=== PATIENT | male | born 1980 | race African-American/Black ===

== ENCOUNTER 2018-02-16 12:59 | Emergency (ER) | payer SELFPAY ==
[~2018-02-16] VITALS: Ht 166.4 cm; Wt 72.6 kg
[2018-02-16 13:10] VITALS: BP 125/81
[2018-02-16] MEDS ORDERED: PRED50TA PO (14:58)
[2018-02-16] MEDS ORDERED: PROAIR HFA8.5 GM INH (14:58)
[2018-02-16] MEDS ORDERED: AZIT250T PO (14:58)
--- NOTE | 2018-02-16 14:59 | PHYS DOC ---
Past Medical History Past Medical History: No Pertinent History Past Surgical History: Other Additional Past Surgical Histo: HERNIA REPAIR Additional Information: 4 CIGARETTES DAILY Alcohol Use: None Drug Use: None Adult General Chief Complaint Chief Complaint: SORE THROAT HPI HPI Patient is a 37 year old male who presents with chest congestion, sinus congestion, shortness of breath and a sore throat. The patient states that this started approximately one week ago. He has never been diagnosed with asthma but he is a smoker and has been given inhalers before in the past. He does feel like his chest is tight. He denies fever, nausea or vomiting. Review of Systems Review of Systems Constitutional: Denies fever or chills [] Eyes: Denies change in visual acuity, redness, or eye pain [] HENT: See history of present illness Respiratory: See history of present illness Cardiovascular: No additional information not addressed in HPI [] GI: Denies abdominal pain, nausea, vomiting, bloody stools or diarrhea [] : Denies dysuria or hematuria [] Musculoskeletal: Denies back pain or joint pain [] Integument: Denies rash or skin lesions [] Neurologic: Denies headache, focal weakness or sensory changes [] Endocrine: Denies polyuria or polydipsia [] All other systems were reviewed and found to be within normal limits, except as documented in this note. Current Medications Current Medications Current Medications Medications (Trade) Dose Ordered Sig/Pola Start Time Stop Time Status Last Admin Dose Admin Albuterol Sulfate (Ventolin Neb Soln) 2.5 mg 1X ONCE 02/16/18 15:00 02/16/18 15:01 DC 02/16/18 14:39 2.5 MG Allergies Allergies Allergies Coded Allergies Type Severity Reaction Last Updated Verified No Known Drug Allergies 02/16/18 No Physical Exam Physical Exam Constitutional: Well developed, well nourished, no acute distress, non-toxic appearance. [] HENT: Normocephalic, atraumatic, bilateral external ears normal, pharyngeal erythema with no oral exudates, nose normal. [] Eyes: PERRLA, EOMI, conjunctiva normal, no discharge. [] Neck: Normal range of motion, positive anterior cervical lymphadenopathy and tenderness, supple, no stridor. [] Cardiovascular:Heart rate regular rhythm, no murmur [] Lungs & Thorax: Bilateral breath sounds decreased at the bases Abdomen: Bowel sounds normal, soft, no tenderness, no masses, no pulsatile masses. [] Skin: Warm, dry, no erythema, no rash. [] Back: No tenderness, no CVA tenderness. [] Extremities: No tenderness, no cyanosis, no clubbing, ROM intact, no edema. [] Neurologic: Alert and oriented X 3, normal motor function, normal sensory function, no focal deficits noted. [] Psychologic: Affect normal, judgement normal, mood normal. [] Current Patient Data Vital Signs Vital Signs Date Time Temp Pulse Resp B/P (MAP) Pulse Ox O2 Delivery O2 Flow Rate FiO2 02/16/18 14:41 96 Room Air 02/16/18 13:10 98.4 84 16 125/81 (96) 98.4 EKG EKG [] Radiology/Procedures Radiology/Procedures [] Course & Med Decision Making Course & Med Decision Making Pertinent Labs and Imaging studies reviewed. (See chart for details) []Following administration of an albuterol nebulizer treatment the patient states that he is feeling much better. He now has clear breath sounds throughout. He was highly encouraged to stop smoking voluntary Staff Physician Addendum: I was working in the ER during the course of this patient's visit. I was available for consultation as needed, but I was not directly involved in the care of this patient. . Dragon Disclaimer Dragon Disclaimer This electronic medical record was generated, in whole or in part, using a voice recognition dictation system. Departure Departure Impression: Primary Impression: Upper respiratory infection Additional Impression: Pharyngitis Disposition: 01 HOME, SELF-CARE Condition: STABLE Referrals: NO PCP (PCP) Patient Instructions: Upper Respiratory Infection, Adult, Viral and Bacterial Pharyngitis Additional Instructions: Take the medication as directed. Follow-up with your primary care provider in one week if not improving or return to the emergency department if worsening. Scripts Azithromycin (ZITHROMAX) 250 Mg Tablet 1 PKG PO UD, #1 PKG Prov: JOSELINE CANO APRN 02/16/18 Albuterol Sulfate (PROAIR HFA INHALER) 8.5 Gm Hfa.aer.ad 1 PUFF INH PRN Q6HRS PRN for SHORTNESS OF BREATH, #1 INHALER 0 Refills Prov: JOSELINE CANO APRN 02/16/18 Prednisone (PREDNISONE) 50 Mg Tablet 1 TAB PO DAILY, #5 TAB Prov: JOSELINE CANO APRN 02/16/18 Problem Qualifiers JOSELINE CANO APRN Feb 16, 2018 14:59 SUSIE SCHWARTZ MD Feb 16, 2018 17:38
[2018-02-16] MEDS ORDERED: ALBUTEROL SULFATE 2.5 MG/3 ML NEBU. NEB ONE (15:00)
== END 2018-02-16 15:04 | disposition home or self-care (01) ==
LOC: ER 12:59
DX: J02.9 Acute pharyngitis, unspecified (principal); R06.02 Shortness of breath; R09.89 Other specified symptoms and signs involving the circulatory and respiratory systems; F17.210 Nicotine dependence, cigarettes, uncomplicated
CPT/HCPCS: 94640; 99283; J7613

== ENCOUNTER 2018-03-24 11:50 | Emergency (ER) | payer SELFPAY ==
[~2018-03-24] VITALS: Ht 165.1 cm; Wt 68.0 kg
[~2018-03-24 11:50] MED LIST: AZIT250T PO; PRED50TA PO; PROAIR HFA8.5 GM INH
[2018-03-24 12:01] VITALS: BP 135/74
[2018-03-24] MEDS ORDERED: ALBUTEROL SULFATE 2.5 MG/3 ML NEBU. NEB ONE (12:30)
[2018-03-24] MEDS ORDERED: predniSONE 10 MG TABLET PO ONE (12:30)
[2018-03-24] MEDS ORDERED: PRED50TA PO (12:47)
[2018-03-24] MEDS ORDERED: PROAIR HFA8.5 GM INH (12:47)
[2018-03-24] MEDS ORDERED: BENZ100C PO (12:47)
--- NOTE | 2018-03-24 12:47 | PHYS DOC ---
Past Medical History Past Medical History: No Pertinent History Past Surgical History: Other Additional Past Surgical Histo: HERNIA REPAIR Alcohol Use: None Drug Use: None Adult General Chief Complaint Chief Complaint: Congestion HPI HPI Patient is a 37 year old male who presents to the ER with productive cough with clear to yellow sputum, shortness of breath, nasal congestion, and sinus pressure for the last five days. PT states that on Tuesday and Tuesday he had a fever up to 102. He denies any fever for the last 3 days. He denies any abdominal pain, nausea, vomiting, or diarrhea. States that his chest feel like it is tight. Review of Systems Review of Systems Constitutional: Denies fever for the last 3 days, reports fatigue Eyes: Denies change in visual acuity, redness, or eye pain [] HENT: reports nasal congestion or sore throat [] Respiratory: Reports cough and shortness of breath [] Cardiovascular: denies chest pain or palpitations GI: Denies abdominal pain, nausea, vomiting, or diarrhea [] Musculoskeletal: Denies back pain or joint pain [] Integument: Denies rash or skin lesions [] Neurologic: Denies headache, focal weakness or sensory changes [] All other systems were reviewed and found to be within normal limits, except as documented in this note. Current Medications Current Medications Current Medications Medications (Trade) Dose Ordered Sig/Pola Start Time Stop Time Status Last Admin Dose Admin Albuterol Sulfate (Ventolin Neb Soln) 2.5 mg 1X ONCE 03/24/18 12:30 03/24/18 12:31 DC 03/24/18 12:31 2.5 MG Prednisone (Prednisone) 50 mg 1X ONCE 03/24/18 12:30 03/24/18 12:31 DC 03/24/18 12:31 50 MG Allergies Allergies Allergies Coded Allergies Type Severity Reaction Last Updated Verified No Known Drug Allergies 02/16/18 No Physical Exam Physical Exam Constitutional: Well developed, well nourished, no acute distress, non-toxic appearance. [] HENT: Normocephalic, atraumatic, bilateral external ears normal, oropharynx moist, no oral exudates, nose normal. [] Eyes: PERRLA, conjunctiva normal, no discharge. [] Neck: Normal range of motion, no tenderness, supple, no stridor. [] Cardiovascular:Heart rate regular rhythm, no murmur [] Lungs & Thorax: Bilateral breath sounds clear to auscultation, diminished posterior bases bilat [] Skin: Warm, dry, no erythema, no rash. [] Extremities: No cyanosis, no clubbing, ROM intact, no edema. [] Neurologic: Alert and oriented X 3, normal motor function, normal sensory function, no focal deficits noted. [] Psychologic: Affect normal, judgement normal, mood normal. [] Current Patient Data Vital Signs Vital Signs Date Time Temp Pulse Resp B/P (MAP) Pulse Ox O2 Delivery O2 Flow Rate FiO2 03/24/18 12:35 97 Room Air 03/24/18 12:01 98.3 93 18 135/74 (94) 98.3 EKG EKG [] Radiology/Procedures Radiology/Procedures Pt reports feeling better after breathing treatment, lungs clear in all villegas with increased air movement posteriorly following tx. [] Course & Med Decision Making Course & Med Decision Making Pertinent Labs and Imaging studies reviewed. (See chart for details) Dx: cough, Upper respiratory congestion Albuterol and prednisone given in ER. Pt reports feeling better after tx and medication. Pt was given rx for Proair, tessalon, and prednisone. Encouraged to quit smoking and avoid airway irritants. Patient verbalized an understanding of home care, medications, follow-up, and return to ED instructions and was in agreement with the plan of care. [] Dragon Disclaimer Dragon Disclaimer This electronic medical record was generated, in whole or in part, using a voice recognition dictation system. Departure Departure Impression: Primary Impression: Cough in adult patient Additional Impression: Congestion of upper respiratory tract Disposition: HOME, SELF-CARE Condition: STABLE Referrals: NO PCP (PCP) Patient Instructions: Cough, Adult, [id number] Additional Instructions: Fill prescription(s) and use as directed. Tylenol or ibuprofen prn pain/fever. Increase clear fluids. Avoid triggers such as smoke, fragrance, dust, and pollen. Follow-up with your primary care doctor as needed. Scripts Prednisone (PREDNISONE) 50 Mg Tablet 1 TAB PO DAILY, #4 TAB 0 Refills start taking medication on 03/23/18, you were given the first dose in the ER Prov: PRAFUL KOVACS APRN 03/24/18 Benzonatate (TESSALON PERLE) 100 Mg Capsule 1 CAP PO TID PRN for COUGH, #21 CAP 0 Refills Prov: PRAFUL KOVACS MAIL PROCESSOR 03/24/18 Albuterol Sulfate (PROAIR HFA INHALER) 8.5 Gm Hfa.aer.ad 1-2 PUFF INH PRN Q6HRS PRN for SHORTNESS OF BREATH for 10 Days, #1 INHALER 0 Refills Prov: PRAFUL KOVACS MAIL PROCESSOR 03/24/18 Attending Signature Attending Signature I have reviewed the PA/CONGREGATIONAL CARE PASTOR's note and plan of care. I was available for consultation as needed during the patient's visit in the emergency department. I agree with the clinical impression, plan, and disposition. Problem Qualifiers PRAFUL KOVACS APRN Mar 24, 2018 12:47 DEY,FRANK Humphries DO Mar 27, 2018 03:06
== END 2018-03-24 12:49 | disposition home or self-care (01) ==
LOC: ER 11:50
DX: R05 Cough (principal); R09.81 Nasal congestion; R06.02 Shortness of breath
CPT/HCPCS: 94640; 99283; J7512; J7613

== ENCOUNTER 2018-10-20 20:24 | Emergency (ER) | payer SELFPAY ==
[~2018-10-20] VITALS: Ht 167.6 cm; Wt 68.0 kg
[~2018-10-20 20:24] MED LIST changes: +ALBU2.5V8 INH; +BENZ100C PO; -PROAIR HFA8.5 GM INH
[2018-10-20 20:42] VITALS: BP 140/65
--- NOTE | 2018-10-20 20:56 | PHYS DOC ---
Past Medical History Past Medical History: No Pertinent History (NNAMDI OLVERA) Past Surgical History: Other Additional Past Surgical Histo: HERNIA REPAIR (NNAMDI OLVERA) Alcohol Use: None Drug Use: None (NNAMDI OLVERA) Adult General Chief Complaint Chief Complaint: ALLERGIC REACTION HPI HPI Patient is a 38 year old M who presents with itching and burning under arms, in groin, in feet and sometimes lips. There is no obvious rash per pt but with the burning around his groin he was concerned for STD. He denies dysuria, penile sores, penile discharge or scrotal pain. (NNAMDI OLVERA) Review of Systems Review of Systems Constitutional: Denies fever or chills HENT: Denies nasal congestion or sore throat. Intermittent lip burning Respiratory: Denies cough or shortness of breath Cardiovascular: Denies chest pain GI: Denies abdominal pain, nausea, vomiting, bloody stools or diarrhea : Denies dysuria or hematuria Musculoskeletal: Denies back pain or joint pain Integument: Reports burning and itching in axilla, groin, knees and lips Neurologic: Denies headache, focal weakness or sensory changes All other systems were reviewed and found to be within normal limits, except as documented in this note. (NNAMDI OLVERA) Allergies Allergies Allergies Coded Allergies Type Severity Reaction Last Updated Verified No Known Drug Allergies 02/16/18 No (SUSIE SCHWARTZ MD) Physical Exam Physical Exam Constitutional: Well developed, well nourished, no acute distress, non-toxic appearance. HENT: Normocephalic, atraumatic, bilateral external ears normal, oropharynx moist, no oral exudates, nose normal. No lip abnormality noted. Neck: Normal range of motion, no tenderness, supple, no stridor. Cardiovascular:Heart rate regular rhythm, no murmur Lungs & Thorax: Bilateral breath sounds clear to auscultation Abdomen: Bowel sounds normal, soft, no tenderness, no masses, no pulsatile masses. Skin: Warm, dry, no erythema, no rash. Pruritic in axilla, knees and back of neck without any obvious erythema or skin abnormality. Back: No tenderness, no CVA tenderness. Extremities: No tenderness, no cyanosis, no clubbing, ROM intact, no edema. Neurologic: Alert and oriented X 3, normal motor function, normal sensory function, no focal deficits noted. Psychologic: Affect normal, judgement normal, mood normal. (NNAMDI OLVERA) Current Patient Data Vital Signs Vital Signs Date Time Temp Pulse Resp B/P (MAP) Pulse Ox O2 Delivery O2 Flow Rate FiO2 10/20/18 20:42 98.2 79 18 140/65 (90) 100 Room Air 98.2 (SUSIE SCHWARTZ MD) Lab Values Laboratory Tests Test 10/20/18 20:40 Urine Collection Type Clean catch Urine Color Yellow Urine Clarity Clear Urine pH 6.0 Urine Specific [place] >=1.030 Urine Protein Negative mg/dL (NEG-TRACE) Urine Glucose (UA) Negative mg/dL (NEG) Urine Ketones (Stick) Trace mg/dL (NEG) Urine Blood Negative (NEG) Urine Nitrite Negative (NEG) Urine Bilirubin Small (NEG) Urine Urobilinogen Dipstick 1.0 mg/dL (0.2 mg/dL) Urine Leukocyte Esterase Trace (NEG) Urine RBC 0 /HPF (0-2) Urine WBC 1-4 /HPF (0-4) Urine Squamous Epithelial Cells None /LPF Urine Bacteria 0 /HPF (0-FEW) Urine Mucus Marked /LPF Urine Chlamydia DNA (PCR) Negative (Negative) Neisseria gonorrhoeae DNA (PCR) Negative (Negative) Microbiology 10/20/18 Urine Culture - Final, Complete 10/20/18 Urine Culture Result 1 (CHRISTOPH) - Final, Complete (SUSIE SCHWARTZ MD) Lab Values Laboratory Tests Test 10/20/18 20:40 Urine Collection Type Clean catch Urine Color Yellow Urine Clarity Clear Urine pH 6.0 Urine Specific [place] >=1.030 Urine Protein Negative mg/dL (NEG-TRACE) Urine Glucose (UA) Negative mg/dL (NEG) Urine Ketones (Stick) Trace mg/dL (NEG) Urine Blood Negative (NEG) Urine Nitrite Negative (NEG) Urine Bilirubin Small (NEG) Urine Urobilinogen Dipstick 1.0 mg/dL (0.2 mg/dL) Urine Leukocyte Esterase Trace (NEG) Urine RBC 0 /HPF (0-2) Urine WBC 1-4 /HPF (0-4) Urine Squamous Epithelial Cells None /LPF Urine Bacteria 0 /HPF (0-FEW) Urine Mucus Marked /LPF Urine Chlamydia DNA (PCR) Negative (Negative) Neisseria gonorrhoeae DNA (PCR) Negative (Negative) Microbiology 10/20/18 Urine Culture - Final, Complete 10/20/18 Urine Culture Result 1 (CHRISTOPH) - Final, Complete (NNAMDI OLVERA) EKG EKG [] (NNAMDI OLVERA) Radiology/Procedures Radiology/Procedures [] (NNAMDI OLVERA) Course & Med Decision Making Course & Med Decision Making Pertinent Labs and Imaging studies reviewed. (See chart for details) UA collected and GC/Chlamydia will be tested. No obvious rash noted, but pruritic burning skin. Will cover for dermatitis/eczema and pt will be contacted with any positive finding on urinalysis. (NNAMDI OLVERA) Course & Med Decision Making Staff Physician Addendum: I was working in the ER during the course of this patient's visit. I was available for consultation as needed, but I was not directly involved in the care of this patient. (SUSIE SCHWARTZ MD) Dragon Disclaimer Dragon Disclaimer This electronic medical record was generated, in whole or in part, using a voice recognition dictation system. (NNAMDI OLVERA) Departure Departure Impression: Primary Impression: Pruritic dermatitis Additional Impression: Concern about STD in male without diagnosis Disposition: 01 HOME, SELF-CARE Condition: STABLE Referrals: NO PCP (PCP) Patient Instructions: Pruritus, Sexually Transmitted Disease Additional Instructions: We are not sure about the cause of your itching and redness. We will treat it like an allergic reaction but pay close attention to whether you notice the itching after a particular exposure (body wash, food, etc). The name provided is a local livestock broker who may be able to help if symptoms persist. The STD testing will be completed in 3-4 days and if there are any positive results, you will be contacted. Scripts Ondansetron Hcl (ZOFRAN) 4 Mg Tablet 1 TAB PO Q6HRS PRN for NAUSEA/VOMITING, #6 TAB Prov: NNAMDI OLVERA 10/20/18 Triamcinolone Acetonide (TRIAMCINOLONE ACETONIDE 0.025% CREAM) 15 Gm Cream..g. 1 MAZIN TP BID PRN for ITCHING, #30 GM Prov: NNAMDI OLVERA 10/20/18 Prednisone (PREDNISONE) 20 Mg Tablet 1 TAB PO BID, #10 TAB Prov: NNAMDI OLVERA 10/20/18 Problem Qualifiers NNAMDI OLVERA October 20, 2018 20:56 SUSIE SCHWARTZ MD October 29, 2018 21:20
[2018-10-20] MEDS ORDERED: PRED20TA PO (21:00)
[2018-10-20] MEDS ORDERED: TRIA15CR2 TP (21:00)
[2018-10-20] MEDS ORDERED: ONDA4TAB7 PO (21:01)
[2018-10-20 21:07] LABS: BILIRUBIN,URINE SMALL (NEG); CLARITY,URINE CLEAR; COLOR,URINE YELLOW; NITRITE,URINE NEGATIVE (NEG); PROTEIN,URINE NEGATIVE (NEG-TRACE)
[2018-10-20 21:16] LABS: BACTERIA,URINE 0 /HPF (0-FEW); RBC,URINE 0 /HPF (0-2)
== END 2018-10-20 21:11 | disposition home or self-care (01) ==
LOC: ER 20:24
DX: L30.8 Other specified dermatitis (principal); Z20.2 Contact with and (suspected) exposure to infections with a predominantly sexual mode of transmission
CPT/HCPCS: 81001; 87086; 87491; 87591; 99284

== ENCOUNTER 2019-02-02 12:16 | Emergency (ER) | payer SELFPAY ==
[~2019-02-02] VITALS: Ht 160 cm; Wt 77.1 kg
[~2019-02-02 12:16] MED LIST changes: +ONDA4TAB7 PO; +PRED20TA PO; +TRIA15CR2 TP
[2019-02-02] MEDS ORDERED: IV NORMAL SALINE 1000ML BAG 1,000 ML IV SCH (13:07)
--- NOTE | 2019-02-02 13:31 | RAD ---
Study: CHEST PA LATERAL Indication: Dizziness. Comparison: None. Findings: Normal configuration of the cardiomediastinal silhouette and hilar structures. No lobar consolidation, pleural effusion or pneumothorax. The osseous structures and upper abdomen are unremarkable. Impression: No acute radiographic abnormality of the chest. Electronically signed by: TAYE ANDREWS MD (02/02/2019 1:28 PM) [id number]
[2019-02-02 13:42] LABS: BILIRUBIN,URINE SMALL (NEG); CLARITY,URINE CLEAR; COLOR,URINE AMBER; NITRITE,URINE NEGATIVE (NEG); PROTEIN,URINE NEGATIVE (NEG-TRACE)
[2019-02-02 13:54] LABS: AMPHETAMINE/METHAMPHETAMINE NEG (NEG); BARBITURATES NEG (NEG); BENZODIAZEPINES NEG (NEG); CANNABINOIDS POS (NEG); COCAINE NEG (NEG); METHADONE NEG (NEG); OPIATES NEG (NEG); PHENCYCLIDINE NEG (NEG)
[2019-02-02 14:00] LABS: BACTERIA,URINE 0 /HPF (0-FEW); RBC,URINE 0 /HPF (0-2); SQUAMOUS EPITHELIAL CELL,UR OCC /LPF; WBC,URINE RARE /HPF (0-4)
--- NOTE | 2019-02-02 14:07 | PHYS DOC ---
Past Medical History Past Medical History: No Pertinent History Past Surgical History: Other Additional Past Surgical Histo: left inguinal hernia repair as child Alcohol Use: None Drug Use: Marijuana Adult General Chief Complaint Chief Complaint: DIZZY/LIGHT HEADED [facility] HPI Patient is a 38 year old male who presents with complaining of dizziness. Patient state he felt dizzy with standing up and change of position just prior to arrival to ER without nausea, headache, tinnitus, chest pain, shortness of breath, focal neuro deficit, history of head injury or dizziness. Patient states he smoked marijuana yesterday with the last marijuana use in 2004. Patient denies using drugs or alcohol and recent dehydration. Review of Systems Review of Systems Constitutional: Denies fever or chills [] Eyes: Denies change in visual acuity, redness, or eye pain [] HENT: Denies nasal congestion or sore throat [] Respiratory: Denies cough or shortness of breath [] Cardiovascular: No additional information not addressed in HPI [] GI: Denies abdominal pain, nausea, vomiting, bloody stools or diarrhea [] : Denies dysuria or hematuria [] Musculoskeletal: Denies back pain or joint pain [] Integument: Denies rash or skin lesions [] Neurologic: Denies headache, focal weakness or sensory changes [] Endocrine: Denies polyuria or polydipsia [] All other systems were reviewed and found to be within normal limits, except as documented in this note. Current Medications Current Medications Current Medications Medications (Trade) Dose Ordered Sig/Pola Start Time Stop Time Status Last Admin Dose Admin Sodium Chloride 1,000 ml @ 1,000 mls/hr Q1H 02/02/19 13:07 02/02/19 14:06 AR Allergies Allergies Allergies Coded Allergies Type Severity Reaction Last Updated Verified No Known Drug Allergies 02/16/18 No Physical Exam Physical Exam Constitutional: Well developed, well nourished, mild distress, non-toxic appearance. [] HENT: Normocephalic, atraumatic. Eyes: PERRLA, EOMI, conjunctiva normal, no discharge. [] Neck: Normal range of motion, no tenderness, supple, no stridor. [] Cardiovascular:Heart rate regular rhythm, no murmur [] Lungs & Thorax: Bilateral breath sounds clear to auscultation [] Abdomen: Bowel sounds normal, soft, no tenderness, no masses, no pulsatile masses. [] Skin: Warm, dry, no erythema, no rash. [] Back: No tenderness, no CVA tenderness. [] Extremities: No tenderness, no cyanosis, no clubbing, ROM intact, no edema. [] Neurologic: Alert and oriented X 3, no focal deficits noted. [] Psychologic: Affect normal, judgement normal, mood normal. [] Current Patient Data Vital Signs Vital Signs Date Time Temp Pulse Resp B/P (MAP) Pulse Ox O2 Delivery O2 Flow Rate FiO2 02/02/19 12:20 97.9 79 19 130/63 (85) 96 Room Air 97.9 Lab Values Laboratory Tests Test 02/02/19 13:30 Urine Collection Type Unknown Urine Color [place] Urine Clarity Clear Urine pH 6.0 Urine Specific [place] >=1.030 Urine Protein Negative mg/dL (NEG-TRACE) Urine Glucose (UA) Negative mg/dL (NEG) Urine Ketones (Stick) Negative mg/dL (NEG) Urine Blood Negative (NEG) Urine Nitrite Negative (NEG) Urine Bilirubin Small (NEG) Urine Urobilinogen Dipstick 1.0 mg/dL (0.2 mg/dL) Urine Leukocyte Esterase Negative (NEG) Urine RBC 0 /HPF (0-2) Urine WBC Rare /HPF (0-4) Urine Squamous Epithelial Cells Occ /LPF Urine Bacteria 0 /HPF (0-FEW) Urine Mucus Marked /LPF Urine Opiates Screen Neg (NEG) Urine Methadone Screen Neg (NEG) Urine Barbiturates Neg (NEG) Urine Phencyclidine Screen Neg (NEG) Urine Amphetamine/Methamphetamine Neg (NEG) Urine Benzodiazepines Screen Neg (NEG) Urine Cocaine Screen Neg (NEG) Urine Cannabinoids Screen Pos (NEG) Urine Ethyl Alcohol Neg (NEG) EKG EKG EKG interpreted by me. EKG at 1350 showed normal sinus rhythm at rate of 60 prolonged [place] interval at 246, poor R-wave progress in anteroseptal leads, no acute ST and T-wave abnormalities. Radiology/Procedures Radiology/Procedures [facility] [address] [place] [address] IMAGING REPORT Signed PATIENT: LETICIA ALVAREZ ACCOUNT: [id number] : 1980 LOCATION: ER AGE: 38 SEX: M EXAM STATUS: REG ER ORD. PHYSICIAN: JOSEPH ESCOBAR MD REASON: dizziness PROCEDURE: CHEST PA & LATERAL Study: CHEST PA LATERAL Indication: Dizziness. Comparison: None. Findings: Normal configuration of the cardiomediastinal silhouette and hilar structures. No lobar consolidation, pleural effusion or pneumothorax. The osseous structures and upper abdomen are unremarkable. Impression: No acute radiographic abnormality of the chest. Electronically signed by: TAYE NADREWS MD (02/02/2019 1:28 PM) [facility] DICTATED and SIGNED BY: TAYE ANDREWS MD DATE: 02/02/19 1328 [facility] [address] [place] [address] IMAGING REPORT Signed PATIENT: LETICIA ALVAREZ ACCOUNT: [id number] : 1980 LOCATION: ER AGE: 38 SEX: M EXAM STATUS: REG ER ORD. PHYSICIAN: JOSEPH ESCOBAR MD REASON: dizziness PROCEDURE: CT HEAD WO CONTRAST CT HEAD WO CONTRAST Clinical indications: Dizziness. COMPARISON: None available. Technique: Noncontrast axial cross sectional scanning of the head was performed. PQRS compliance Statement One or more of the following individualized dose reduction techniques were utilized for this study: 1. Automated exposure control 2. Adjustment of the mA and/or kV according to patient size 3. Use of iterative reconstruction technique Findings: No acute intracranial hemorrhage or midline shift or mass-effect or hydrocephalus or extra-axial fluid collection is seen. No focal hypodense area or sulci effacement is seen to indicate an acute infarct or edema radiographically. No skull fracture or pneumocephalus is seen. No opacification of the mastoid sinuses or the middle ear cavities or the paranasal sinuses is seen. The maxillary sinuses are not completely seen in this study. Impression: No acute intracranial abnormality is seen. Electronically signed by: Lexi Ba MD (02/02/2019 2:42 PM) [facility] DICTATED and SIGNED BY: LEXI BA MD DATE: 02/02/19 0532 Course & Med Decision Making Course & Med Decision Making Pertinent Labs and Imaging studies reviewed. (See chart for details) Evaluation of patient in ER showed 38-year-old male patient without medical problems presented with complaining of sudden onset of dizziness with changing position. Patient used marijuana yesterday for the first time after several years of not using marijuana. Patient had unremarkable physical and neuro exam and CT head and chest x-ray. Patient ambulated before starting IV line and drinking liquid without problem or dizziness and did not have IV line and labs. Plan to discharge patient home with diagnose of benign positional deficit and marijuana abuse. Dragon Disclaimer Dragon Disclaimer This electronic medical record was generated, in whole or in part, using a voice recognition dictation system. Departure Departure Impression: Primary Impression: Benign positional vertigo Additional Impression: Marijuana abuse Disposition: HOME, SELF-CARE (at 1507) Condition: IMPROVED (at 1507) Referrals: NO PCP (PCP) Patient Instructions: Benign Positional Vertigo Additional Instructions: Drink plenty of liquids Follow-up with your primary care physician in 3-5 days Return to ER if not getting better Scripts Meclizine Hcl (MECLIZINE HCL) 25 Mg Tablet 1 TAB PO TID for dizziness, #20 TAB Prov: JOSEPH ESCOBAR MD 02/02/19 Problem Qualifiers Primary Impression: Benign positional vertigo Laterality: unspecified laterality Qualified Codes: H81.10 - Benign paroxysmal vertigo, unspecified ear JOSEPH ESCOBAR MD Feb 02, 2019 14:07
--- NOTE | 2019-02-02 14:26 | EKG ---
[facility] [address] [place] [address] Test Date: 2019-02-02 Test Time: 13:50:29 Pat Name: LETICIA ALVAREZ Department: Room: Gender: M Manager Drilling: : 1980 Requested By: JOSEPH ESCOBAR Order Number: [id number] Reading MD: Shivam Boyce MD Measurements Intervals [place] Rate: 67 P: 27 WV: 246 QRS: 45 QRSD: 72 T: 20 QT: 374 QTc: 397 Interpretive Statements SINUS RHYTHM PROLONGED [place] INTERVAL NON SPECIFIC ST-T ABNORMALITY (ELEVATION) Electronically Signed On 02-08-2019 17:27:19 CDT by Shivam Boyce MD
--- NOTE | 2019-02-02 14:45 | RAD ---
CT HEAD WO CONTRAST Clinical indications: Dizziness. COMPARISON: None available. Technique: Noncontrast axial cross sectional scanning of the head was performed. PQRS compliance Statement One or more of the following individualized dose reduction techniques were utilized for this study: 1. Automated exposure control 2. Adjustment of the mA and/or kV according to patient size 3. Use of iterative reconstruction technique Findings: No acute intracranial hemorrhage or midline shift or mass-effect or hydrocephalus or extra-axial fluid collection is seen. No focal hypodense area or sulci effacement is seen to indicate an acute infarct or edema radiographically. No skull fracture or pneumocephalus is seen. No opacification of the mastoid sinuses or the middle ear cavities or the paranasal sinuses is seen. The maxillary sinuses are not completely seen in this study. Impression: No acute intracranial abnormality is seen. Electronically signed by: Jerad Ba MD (02/02/2019 2:42 PM) [facility]
[2019-02-02 15:04] VITALS: BP 134/59
[2019-02-02] MEDS ORDERED: MECL25TA3 PO (15:08)
== END 2019-02-02 15:28 | disposition home or self-care (01) ==
LOC: ER 12:16
DX: H81.10 Benign paroxysmal vertigo, unspecified ear (principal); F12.10 Cannabis abuse, uncomplicated
CPT/HCPCS: 70450; 71046; 80307; 81001; 93005; 99285-25

== ENCOUNTER 2019-02-09 17:52 | Emergency (ER) | payer SELFPAY ==
[~2019-02-09] VITALS: Ht 165.1 cm; Wt 77.1 kg
[~2019-02-09 17:52] MED LIST changes: +MECL25TA3 PO
[2019-02-09] MEDS ORDERED: AZITHROMYCIN 250 MG TABLET. PO ONE (18:15)
[2019-02-09] MEDS ORDERED: cefTRIAXone IM 250 MG VIAL IM ONE (18:15)
[2019-02-09 18:16] VITALS: BP 130/65
--- NOTE | 2019-02-09 18:18 | PHYS DOC ---
Past Medical History Past Medical History: No Pertinent History Past Surgical History: Other Additional Past Surgical Histo: left inguinal hernia repair as child Alcohol Use: None Drug Use: Marijuana Adult General Chief Complaint Chief Complaint: SEXUALLY TRANSMITTED DISEASE HPI HPI Patient is a 38 year old M WITH D/C FROM [place] X TWO DAYS IS SEXUALLY ACTIVE NO FEVER BIT OF BURNING AT TIP OF PENIS WITH URINATION Review of Systems Review of Systems Constitutional: Denies fever or chills [] Eyes: Denies change in visual acuity, redness, or eye pain [] HENT: Denies nasal congestion or sore throat [] Respiratory: Denies cough or shortness of breath [] Cardiovascular: No additional information not addressed in HPI [] GI: Denies abdominal pain, nausea, vomiting, bloody stools or diarrhea [] Musculoskeletal: Denies back pain or joint pain [] All other systems were reviewed and found to be within normal limits, except as documented in this note. Current Medications Current Medications Current Medications Medications (Trade) Dose Ordered Sig/Pola Start Time Stop Time Status Last Admin Dose Admin Azithromycin (Zithromax) 1,000 mg 1X ONCE 02/09/19 18:15 02/09/19 18:16 DC Ceftriaxone Sodium (Rocephin Im) 250 mg 1X ONCE 02/09/19 18:15 02/09/19 18:16 DC Allergies Allergies Allergies Coded Allergies Type Severity Reaction Last Updated Verified No Known Drug Allergies 02/16/18 No Physical Exam Physical Exam Constitutional: Well developed, well nourished, no acute distress, non-toxic appearance. [] HENT: Normocephalic, atraumatic, bilateral external ears normal, oropharynx moist, no oral exudates, nose normal. [] Eyes: PERRLA, EOMI, conjunctiva normal, no discharge. [] Skin: Warm, dry, no erythema, no rash. [] NO LESIONS ON GENITALS Back: No tenderness, no CVA tenderness. [] Extremities: No tenderness, no cyanosis, no clubbing, ROM intact, no edema. [] Neurologic: Alert and oriented X 3, normal motor function, normal sensory function, no focal deficits noted. [] Psychologic: Affect normal, judgement normal, mood normal. [] EKG EKG [] Radiology/Procedures Radiology/Procedures [] Course & Med Decision Making Course & Med Decision Making Pertinent Labs and Imaging studies reviewed. (See chart for details) CTX/AZITHRO IN ER GC/CHLAM SENT SEX PROTECTED PRECAUTIONS [] Dragon Disclaimer Dragon Disclaimer This electronic medical record was generated, in whole or in part, using a voice recognition dictation system. Departure Departure Impression: Primary Impression: Urethritis Disposition: 01 HOME, SELF-CARE Condition: STABLE Patient Instructions: Urethritis, Adult SUSIE SCHWARTZ MD Feb 09, 2019 18:18
== END 2019-02-09 18:36 | disposition home or self-care (01) ==
LOC: ER 17:52
DX: N34.2 Other urethritis (principal)
CPT/HCPCS: 87491; 87591; 96372; 99284; J0696; Q0144